=== PATIENT | female | born 1985 | race African-American/Black ===

== ENCOUNTER 2023-07-17 15:47 | Emergency (ER) | payer OTHER, SELFPAY ==
--- NOTE | ~2023-07-17 | US_ITS ---
EXAMINATION: US OBSTETRICAL ULTRASOUND CLINICAL INFORMATION: Vaginal bleeding. COMPARISON: None available. LMP: Unknown. TECHNIQUE: Transabdominal and transvaginal ultrasound was performed. FINDINGS: There is a single intrauterine gestational sac with visible yolk sac, embryo/fetus, and cardiac activity. There is no significant subchorionic hemorrhage or hematoma. HR: 158 beats per minute. CRL (crown rump length): 1.17 cm (7 weeks 3 days +/- 4 days). RAHEEL (estimated date of delivery): 03/01/2024 +/- 4 days. MATERNAL ADNEXA: The right maternal ovary measures 2.3 x 1.5 x 1.4 cm. The left maternal ovary measures 3.1 x 2.0 x 1.7 cm. There is a corpus luteal cyst measuring 2.5 x 1.1 x 1.2 cm. There is no significant maternal adnexal mass. No maternal pelvic ascites. US/US OB pelvic and transvaginal IMPRESSION: 1. Single intrauterine gestation with ultrasound gestational age of 7 weeks 3 days +/- 4 days. 2. Estimated date of delivery is 03/01/2024 +/- 4 days. 3. No maternal adnexal mass or pelvic ascites.
[2023-07-17 16:47] VITALS: BP 107/68; PULSE 78; RESP 16; TEMP 36.7; O2SAT 99; BMI 27.8
--- NOTE | 2023-07-17 16:53 | ED.GENADULT ---
HPI - General Adult General Chief complaint: OB Stated complaint: Abd pain - sent by urgent care Time Seen by Provider: 07/17/23 21:41 Related Data Allergies Allergy/AdvReac Type Severity Reaction Status Date / Time No Known Allergies Allergy Verified 07/17/23 16:54 [facility] Social History Social History Smoked in Last 30 Days: No Use of substances other than those prescribed or required for medical reasons: No Advance Directives: No Advance Directives Information Provided: No Patient : Yes Physical Exam ED Vital Signs: Vital Signs - 24 hr 07/17/23 16:47 07/17/23 23:34 07/18/23 00:42 Temperature 98.1 F 98.7 F 97.4 F Pulse Rate 78 64 80 Respiratory Rate 16 16 14 Blood Pressure 107/68 102/59 L 107/67 Pulse Oximetry 99 98 97 Oxygen Delivery Method Room Air Room Air Room Air BMI result Body Mass Index 27.8 Course Course Course Narrative: RME performed by Cuca Wlalace PA-C. Patient is a 38 year old assigned female at presenting to the emergency department with abdominal pain, vaginal bleeding, and current . Detailed physical exam and review of systems are deferred to the table maker. Labs, imaging, and swabs ordered. Patient placed back in the waiting room pending room availability and results. Patient seen and dispositioned by Dr. Jefferson. Please see his note from the same date. Medical Decision Making Lab Data 07/17/23 17:57 07/17/23 17:57 Labs: Lab Results 07/17/23 07/17/23 Range/Units 17:57 23:34 WBC 8.1 (4.8-10.8) X10*3/uL RBC 4.30 (4.20-5.50) X10*6/uL Hgb 12.5 (12.0-16.0) g/dl Hct 37.4 (37.0-47.0) % MCV 87.0 (80.0-98.0) fL MCH 29.1 (27.0-33.0) pg MCHC 33.4 (31.0-35.0) g/dl RDW 12.8 (11.0-16.0) % Plt Count 285 (160-400) X10*3/uL MPV 9.2 L (9.4-12.3) fL Immature Gran % (Auto) 0.2 (0.0-0.4) % Neut % (Auto) 54.8 (45-73) % Lymph % (Auto) 35.7 (20-40) % [place] % (Auto) 8.6 (2-11) % Eos % (Auto) 0.5 (0-4) % Baso % (Auto) 0.2 (0-2) % Lymph # (Auto) 2.9 (1.2-4.9) X10*3/uL [place] # (Auto) 0.7 (0.1-1.2) X10*3/uL Eos # (Auto) 0.0 (0.0-0.4) X10*3/uL Baso # (Auto) 0.0 (0.0-0.2) X10*3/uL Abs Immat Gran (auto) 0.02 (0.00-0.03) X10*3/uL Absolute Neuts (auto) 4.4 (2.0-8.3) x10*3/uL Absolute Nucleated RBC 0.000 (0.0-0.012) X10*3/uL Nucleated RBC % (auto) 0.0 (0.0-0.2) /100WBC Sodium 138 (135-145) mmol/L Potassium 4.0 (3.3-5.1) mmol/L Chloride 105 (96-108) mmol/L Carbon Dioxide 23 (22-29) mmol/L Anion Gap 14 (12-20) BUN 6 L (9-16) mg/dL Creatinine 0.75 (0.5-1.4) mg/dL Estim Creat Clear Calc 94.3 Estimated GFR > 60 Random Glucose 112 (60-115) mg/dL Calcium 9.8 (8.4-10.2) mg/dL Magnesium 2.2 (1.6-2.6) mg/dL Total Bilirubin 0.4 (0.0-1.0) mg/dL AST 14 (5-31) U/L ALT 11 (0-31) U/L Alkaline Phosphatase 29 L (39-117) U/L Total Protein 7.3 (6.5-8.0) g/dL Albumin 4.3 (3.5-5.0) g/dL Beta HCG, Quant 113733 mIU/mL Blood Type A Positive Antibody Screen NEGATIVE Discharge Plan Discharge Clinical Impression: , threatened Patient Disposition: Home, Self-Care Instructions: Threatened Miscarriage (ED) Referrals: Tariq Johnson MD [Physician] - 07/20/23 Interventions: ED Discharge Assessment Last Done: 07/18/23 00:44 Discharge Date/Time: 07/18/23 00:44 Print Language: Anguillan
[2023-07-17 18:01] LABS: MANUAL DIFF FLAG NO
[2023-07-17 18:10] LABS: Basophils Percent Auto 0.2 % (0-2); Eosinophils Percent Auto 0.5 % (0-4); Hematocrit 37.4 % (37.0-47.0); Hemoglobin 12.5 g/dl (12.0-16.0); Imm Gran Abs Auto 0.02 X10*3/uL (0.00-0.03); Imm Gran Pct Auto 0.2 % (0.0-0.4); Lymphocytes Absolute Auto 2.9 X10*3/uL (1.2-4.9); Lymphocytes Percent Auto 35.7 % (20-40); Mean Corpuscular HGB Conc 33.4 g/dl (31.0-35.0); Mean Corpuscular Hemoglobin 29.1 pg (27.0-33.0); Mean Platelet Volume 9.2 fL (9.4-12.3); Monocytes Absolute Auto 0.7 X10*3/uL (0.1-1.2); Monocytes Percent Auto 8.6 % (2-11); Neutrophils Absolute Auto 4.4 x10*3/uL (2.0-8.3); Neutrophils Percent Auto 54.8 % (45-73); Platelet Count 285 X10*3/uL (160-400); Red Cell Distribution Width 12.8 % (11.0-16.0); White Blood Count 8.1 X10*3/uL (4.8-10.8)
[2023-07-17 18:26] LABS: Alanine Aminotransferase 11 U/L (0-31); Albumin Level 4.3 g/dL (3.5-5.0); Alkaline Phosphatase 29 U/L (39-117); Anion Gap 14 (12-20); Aspartate Amino Transferase 14 U/L (5-31); Bilirubin Total 0.4 mg/dL (0.0-1.0); Blood Urea Nitrogen 6 mg/dL (9-16); Calcium 9.8 mg/dL (8.4-10.2); Carbon Dioxide 23 mmol/L (22-29); Chloride 105 mmol/L (96-108); Creatinine Clr Calc Pharmacy 94.3; Estimated Glomerular Filt Rate > 60; Glucose Random 112 mg/dL (60-115); Magnesium 2.2 mg/dL (1.6-2.6); Sodium 138 mmol/L (135-145); Total Protein 7.3 g/dL (6.5-8.0)
[2023-07-17 23:34] VITALS: BP 102/59; PULSE 64; RESP 16; TEMP 37.1; O2SAT 98
--- NOTE | 2023-07-18 00:15 | ED_ITS ---
HPI - Female Genitourinary General Chief complaint: OB Stated complaint: Abd pain - sent by urgent care Time Seen by Provider: 07/17/23 21:41 History of Present Illness HPI Narrative: Patient is a 38-year-old female presents today with having abdominal pain. The pain is in the lower abdomen. It is associated with small amount of bleeding. Her last menstrual period was the end of May. There is no fever no chills. No pain on urination. Patient from home. Sent in for further evaluation by urgent care. This is her 2nd . She has a 5-year-old child at home. Related Data Allergies Allergy/AdvReac Type Severity Reaction Status Date / Time No Known Allergies Allergy Verified 07/17/23 16:54 Review of Systems 2 Review of Systems: Yes all other systems are reviewed and are negative PMFSH Past Medical History Attestation statement: The following information was validated with the patient. Onset Date is defined in the Problem List Problems that require an onset date and time if occurred within 24 hrs of arrival to the ED Aortic Dissection and Rupture; Neurologic impairment; Cardiopulmonary Arrest; Endotracheal Intubation; Insertion or Replacement of Mechanical Circulatory Assist Device Social History Social History Advance Directives: No Advance Directives Information Provided: No Physical Exam 2 Vital Signs: Vital Signs: Last Vital Signs Temp 98.7 F 07/17/23 23:34 Pulse 64 07/17/23 23:34 Resp 16 07/17/23 23:34 BP 102/59 L 07/17/23 23:34 Pulse Ox 98 07/17/23 23:34 O2 Del Method Room Air 07/17/23 23:34 BMI result Body Mass Index 27.8 Appearance: Alert. Oriented X3. No acute distress. Eyes: Pupils equal, round and reactive to light. ENT: Pharynx normal. Neck: Normal inspection. Neck supple. No lymph nodes noted. No crepitus CVS: Normal heart rate and rhythm. Pulses normal. Normal S1 and S2 Respiratory: No respiratory distress. Breath sounds normal. No Wheezing. No rales Abdomen: Soft and nontender. No rigidity. No distention. good BS x4 Skin: Skin warm and dry. Normal skin color. Normal skin turgor. Extremities: No lower extremity edema. Neurovascular intact to all extremities. No Lacerations. No Rash Neuro: Oriented X 3. No motor deficit. No sensory deficit. Moving all extermities. No slurred speech Medical Decision Making Medical Decision Making [facility] Narrative: Patient 38 years old presents today with having scant amount of vaginal bleeding. Question abdominal pain. Patient is . Approximately 9 weeks. Quant is approximately 100,000. Patient's ultrasound was done and shows an intrauterine . Currently awaiting type and screen to make sure there is no ABO incompatibility. Explained to the patient the need to follow miss A/B precaution. Follow-up with OBGYN on outpatient basis. Explained the patient there is no birthing service at [facility]. Patient's blood type came back is A positive. Will discharge patient home phos follow-up on an outpatient basis. Differential Diagnosis Differential Diagnoses: The differential diagnosis associated with the presentation includes Ectopic , appendicitis, UTI, menstruation, kidney stone Admission/Observation Consideration of admission/observation: Escalation of care including admission/observation considered Well-appearing no need to admit patient Lab Data [facility] Lab Attestation statement: I reviewed the patient's lab results. 07/17/23 17:57 07/17/23 17:57 Labs: Lab Results 07/17/23 07/17/23 Range/Units 17:57 23:34 WBC 8.1 (4.8-10.8) X10*3/uL RBC 4.30 (4.20-5.50) X10*6/uL Hgb 12.5 (12.0-16.0) g/dl Hct 37.4 (37.0-47.0) % MCV 87.0 (80.0-98.0) fL MCH 29.1 (27.0-33.0) pg MCHC 33.4 (31.0-35.0) g/dl RDW 12.8 (11.0-16.0) % Plt Count 285 (160-400) X10*3/uL MPV 9.2 L (9.4-12.3) fL Immature Gran % (Auto) 0.2 (0.0-0.4) % Neut % (Auto) 54.8 (45-73) % Lymph % (Auto) 35.7 (20-40) % [place] % (Auto) 8.6 (2-11) % Eos % (Auto) 0.5 (0-4) % Baso % (Auto) 0.2 (0-2) % Lymph # (Auto) 2.9 (1.2-4.9) X10*3/uL [place] # (Auto) 0.7 (0.1-1.2) X10*3/uL Eos # (Auto) 0.0 (0.0-0.4) X10*3/uL Baso # (Auto) 0.0 (0.0-0.2) X10*3/uL Abs Immat Gran (auto) 0.02 (0.00-0.03) X10*3/uL Absolute Neuts (auto) 4.4 (2.0-8.3) x10*3/uL Absolute Nucleated RBC 0.000 (0.0-0.012) X10*3/uL Nucleated RBC % (auto) 0.0 (0.0-0.2) /100WBC Sodium 138 (135-145) mmol/L Potassium 4.0 (3.3-5.1) mmol/L Chloride 105 (96-108) mmol/L Carbon Dioxide 23 (22-29) mmol/L Anion Gap 14 (12-20) BUN 6 L (9-16) mg/dL Creatinine 0.75 (0.5-1.4) mg/dL Estim Creat Clear Calc 94.3 Estimated GFR > 60 Random Glucose 112 (60-115) mg/dL Calcium 9.8 (8.4-10.2) mg/dL Magnesium 2.2 (1.6-2.6) mg/dL Total Bilirubin 0.4 (0.0-1.0) mg/dL AST 14 (5-31) U/L ALT 11 (0-31) U/L Alkaline Phosphatase 29 L (39-117) U/L Total Protein 7.3 (6.5-8.0) g/dL Albumin 4.3 (3.5-5.0) g/dL Beta HCG, Quant 123472 mIU/mL Blood Type A Positive Discharge Plan Discharge Clinical Impression: , threatened Patient Disposition: Home, Self-Care Instructions: Threatened Miscarriage (ED) Referrals: Tariq Johnson MD [Physician] - 07/20/23 Print Language: Faroese
[2023-07-18 00:42] VITALS: BP 107/67; PULSE 80; RESP 14; TEMP 36.3; O2SAT 97
--- NOTE | 2023-07-18 00:43 | PC.NURSE ---
pt ambulatory at discharge. vss. pt calm and cooperative. medical records clerk utilized at discharge. pt provided with discharge packet. pt verbalized understanding of discharge plan
== END 2023-07-18 00:44 | disposition home or self-care (01) ==
PROVIDERS: Physician Assistant Medical; Emergency Provider Emergency Medicine Emergency Medical Services
DX: O20.0 Threatened abortion (principal); Z3A.01 Less than 8 weeks gestation of pregnancy; Z79.899 Other long term (current) drug therapy
CPT/HCPCS: 36415; 76801; 76817; 80053; 83735; 84702; 85025; 86850; 86900; 86901; 99284

== ENCOUNTER 2023-08-04 08:58 | Outpatient (AMB) | payer OTHER, SELFPAY ==
[2023-08-04 09:01] VITALS: BP 118/74; PULSE 70; RESP 13; TEMP 36.3; O2SAT 99; BMI 27.5
--- NOTE | 2023-08-04 09:01 | MHC.PC.OV ---
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 Patient has been vomitting alot due to and haxnt been able to keep anything down. Category Consultant Required: Yes Category Consultant Name: Quique ([id number]) Accompanied by: Daughter Allergies No Known Allergies Allergy (Verified 08/04/23 09:25) Medication List - Last Reconciled 08/04/23 by Elmer Jolly CNP No Known Home Meds Tobacco use date assessed: 08/04/23 Dental Screening Dental Screen Date: 08/04/23 Did you have a dental visit in the last 12 months?: No Did you have a dental problem in the last 6 months where you did not have access to dental care?: No Was dental information given to patient?: Yes HPI HPI Comments History of Present Illness Details New patient Creole Speaking Relocated from [facility] to [facility] in 10/18/2022 Prior PCP:?No former PCP in the . No PCP in [facility] Last blood work: 07/17/2023 Approximately 9 weeks . She has an appointment with [facility] on 08/18/2023 Acute issue(s): Nausea and non bloody vomiting -Not taking any medication for her symptoms PMHx: Denies SurgHx:Exlap and Biopsy 2009 FHx: Mom: Denies SocHx: Nonsmoker. Non drinker. No recreational drugs She was recently evaluated at [facility] for abdominal pain, vaginal bleeding, and . 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 1. Little interest or pleasure in doing things: not at all 2. Feeling down, depressed, or hopeless: not at all 3. Trouble falling or staying asleep, or sleeping too much: not at all 4. Feeling tired or having little energy: not at all 5. Poor appetite or overeating: not at all 6. Feeling bad about yourself - or that you are a failure or have let yourself or your family down: not at all 7. Trouble concentrating on things, such as reading the newspaper or watching television: not at all 8. Moving or speaking so slowly that other people could have noticed. Or the opposite - being so fidgety or restless that you have been moving around a lot more than usual: not at all 9. Thoughts that you would be better off or of hurting yourself in some way: not at all Total score: 0 Depression Screening Interpretation: Negative Depression Screening Done: Yes 51430 - PHQ-9 Billing: Yes Source: Developed by Drs. Isidro Smith, Maureen Rodriguez, Baldev Hutchinson and colleagues, with an educational gabriel from [employer]. Thrive Questionnaire Date Thrive assessed: 08/04/23 I am a: Patient What is your living situation today?: I have a place to live, but I am worried about losing it in the future Within the past 12 months, did the food you bought not last and you didn't have the money to get more?: Never true Within the past 12 months, did you worry whether your food would run out before you got money to buy more?: Never true Do you have trouble paying for medicines?: No Do you have trouble getting transportation to medical appointments?: No Do you have trouble paying your heating and electricity bill?: No Do you have trouble taking care of your child, family member or friend?: No Do you have trouble with day-to-day activities such as bathing, preparing meals, shopping, managing finances, etc.?: No Are you currently unemployed and looking for a job?: Yes Are you interested in more education?: No Please select the resources that you would like help with: Job search/training THRIVE Score: 1 AUDIT C Alcohol Use Questionnaire (AUDIT-C) 1. How often do you have a drink containing alcohol?: Never 3. How often do you have six or more drinks on one occasion?: Never Total Score: 0 SHANTELL-7 AMB Questionnaire SHANTELL-7 Date SHANTELL - 7 assessed: 08/04/23 Feeling nervous, anxious, or on edge: 0 = Not at all Not being able to stop or control worryin = Not at all Worrying too much about different things: 0 = Not at all Trouble relaxin = Not at all Being so restless that it is hard to sit still: 0 = Not at all Becoming easily annoyed or irritable: 0 = Not at all Feeling afraid as if something awful might happen: 0 = Not at all Total SHANTELL-7 score (0-4 normal; 5-9 mild; 10-14 moderate; 15-21 severe): 0 Source: Developed by Drs. Isidro Smith, Maureen Rodriguez, Baldev Hutchinson and colleagues, with an educational gabriel from [employer]. SHANTELL-7 Assessment Billing SHANTELL-7 Assessment Tool: SHANTELL-7 Assessment 70607 Review of Systems Const Details: Const Denies chills, Denies fatigue, Denies fever(s), Denies headache(s) and Denies weakness ENT Denies dizziness and Denies headache(s) Card Denies chest pain, Denies lightheadedness, Denies dyspnea and Denies other (Palpitations) Resp Denies cough, Denies dyspnea, Denies wheezing and Denies other ( shortness of breath) GI Reports nausea and vomiting, Denies abdominal pain, Denies melena, Denies hematochezia, Denies change in bowel habits, Denies dyspepsia Denies hematuria and Denies dysuria Musc Denies abnormal gait, Denies myalgias, Denies arthralgias, Denies numbness and Denies tingling Skin/Breast Denies rash, Denies unusual bruising and Denies wounds Neuro Denies abnormal gait, Denies dizziness, Denies headache(s), Denies memory loss, Denies numbness, Denies Sensory deficit (Neuro), Denies tingling and Denies weakness Psych Denies anxiety, Denies depression, Denies memory loss Endo Denies cold intolerance, Denies fatigue, Denies heat intolerance, Denies polydipsia and Denies polyuria Aller/Immun Denies wheezing Physical exam (Primary Care) Vital Signs: Last Vital Signs Temp 97.3 F 08/04/23 09:01 Pulse 70 08/04/23 09:01 Resp 13 08/04/23 09:01 BP 118/74 08/04/23 09:01 Pulse Ox 99 08/04/23 09:01 Oxygen Delivery Method Room Air 08/04/23 09:01 BMI result Body Mass Index 27.5 Tobacco/Smoking Status: Tobacco use Status Tobacco use date assessed 08/04/23 08/04/23 09:26 Patient Tobacco Use Status Never used Tobacco 08/04/23 09:26 e-Cigarette/Vaping Use Never Used 08/04/23 09:26 PHQ-9: PHQ-9 Score PHQ-9: Total score 0 08/04/23 09:27 Depression Screening Interpretation: Negative Thrive Assessment: Date of Thrive Assessment Date Thrive assessed 08/04/23 08/04/23 09:26 Const Other: General: no acute distress and well developed Nutritional Appearance: well nourished Orientation/consciousness: patient oriented x3 HENMT Head: Yes normocephalic and Yes atraumatic Eyes General: appearance normal, both eyes and all related structures Pupils: Equal, round and reactive pupils present EOM: EOMs intact bilaterally Resp Effort & Inspection: normal respiratory effort Auscultation: clear to auscultation bilaterally Cardio Rate: regular rate Rhythm: regular rhythm Heart sounds: S1 normal heart sound present, S2 normal heart sound present, no gallops, no murmurs and no rubs GI Palpation (GI): No Abdominal aortic bruit present, Soft to palpation, nontender, No hepatosplenomegaly present and No Rebound tenderness present Auscultation: normal bowel sounds General: Yes no CVA tenderness Back/Spine/Pelvis Back: no CVA tenderness Cervical Spine: cervical ROM normal and No Cervical spine tenderness Thoracic/Lumbar Spine: thoraco-lumbar ROM normal, No pain with thoraco-lumbar ROM, No thoracic spinal tenderness and No lumbar spinal tenderness Extrem General: Yes normal to inspection, No edema and No calf tenderness Skin General: warm and dry. Normal skin color. Normal skin turgor Lesions: no lesions Rashes: no rashes Trauma: no lacerations or abrasions Wounds: no wounds Nails: normal Neuro General: patient oriented x3, gait normal and no focal neuro deficit Cranial nerves: Yes Equal, round and reactive pupils present Cognition (Neuro): normal cognition Gait exam (Neuro): Normal gait present Sensory Exam: No Sensory deficit (Neuro) Psych Appearance: grossly normal Affect: normal affect Attitude: cooperative Thought process: Normal thought process present Assessment and Plan Assessment & Plan (1) : Code(s): Z34.90 - Encounter for supervision of normal , unspecified, unspecified trimester Plan: Approximately 9 weeks Reports nausea and nonbloody vomiting Bonjesta as prescribed Has a follow-up appointment with [facility] first mate Follow-up as planned Adequate hydration encouraged Return or go to the ED with worsening or new symptoms Verbalized understanding and agreed with treatment plan (2) Nausea and vomiting during : Code(s): O21.9 - Vomiting of , unspecified Plan: Plan as above (3) Laboratory tests ordered as part of a complete physical exam (CPE): Code(s): Z00.00 - Encounter for general adult medical examination without abnormal findings Plan: Fasting labs ordered as part of a complete physical exam. Advised to fast for at least 10 hours before getting labs drawn. May drink water Verbalized understanding and agreed with treatment plan. Orders: Orders Lipid Panel Today Z00.00 - Encounter for general adult medical examination without abnormal findings UA CC w/rflx Micro + Cult Today Z00.00 - Encounter for general adult medical examination without abnormal findings, Z34.90 - Encounter for supervision of normal , unspecified, unspecified trimester TSH reflex Free T4 Today Z00.00 - Encounter for general adult medical examination without abnormal findings Medications: New doxylamine-pyridoxine (vit B6) 20-20 mg (Bonjesta) 1 tab PO BEDTIME 15 tabs 0RF 15 days Coding Level of Care Code New Pt Level 4 (24069) Diagnoses Z34.90 Nausea and vomiting during O21.9 Laboratory tests ordered as part of a complete physical exam (CPE) Z00.00 Additional Codes SHANTELL-7 Assessment Billing - SHANTELL-7 Assessment Tool: SHANTELL-7 Assessment 09916 ([id number])
== END 2023-08-04 10:03 | disposition home or self-care (01) ==
PROVIDERS: PCP Nurse Practitioner Family; Visit Provider Nurse Practitioner Family
DX: Z34.90 Encounter for supervision of normal pregnancy, unspecified, unspecified trimester (principal); O21.9 Vomiting of pregnancy, unspecified; Z00.00 Encounter for general adult medical examination without abnormal findings
CPT/HCPCS: 99204

== ENCOUNTER 2023-08-07 10:10 | Outpatient (REF) | payer OTHER, SELFPAY ==
[2023-08-07 15:06] LABS: Appearance Urine Clear; Color Urine Yellow; Glucose Urine UA Negative (Negative); Leukocyte Esterase Urine Negative (Negative); Nitrite Urine Negative (Negative); Urine Blood Negative (Negative); Urine Ketones Negative (Negative); Urine Protein Negative (Neg-Trace)
[2023-08-07 15:50] LABS: Cholesterol 203 mg/dL (<200); HDL Cholesterol 81 mg/dL (>40); LDL Cholesterol Calculated 105 mg/dL (<100); Triglycerides 87 mg/dL (<150)
[2023-08-07 16:00] LABS: TSH reflex Free T4 1.24 uIU/mL (0.32-4.0)
== END 2023-08-07 10:11 | disposition home or self-care (01) ==
LOC: HO.WFDLDS 10:10
PROVIDERS: Visit Provider Nurse Practitioner Family
DX: Z00.00 Encounter for general adult medical examination without abnormal findings (principal); O09.529 Supervision of elderly multigravida, unspecified trimester
CPT/HCPCS: 36415; 80061; 81003; 84443

== ENCOUNTER 2023-09-11 07:57 | Outpatient (AMB) | payer OTHER, SELFPAY ==
--- NOTE | 2023-09-11 08:09 | MHC.PC.OV ---
Vital Signs 09/11/23 08:11 Height 5 ft 2 in Weight 152 lb 6 oz BMI 27.9 BP 108/64 Blood Pressure Location Rt brachial Position Sitting Respiration 13 Pulse 79 Pulse Source Pulse Oximeter Temp 97 F Temp Source Temporal Artery Scan Pulse Oximetry (%) 99 Oxygen Delivery Method Room Air Intake Visit Reasons: cpe Intake Note: . Commissioning Agent Required: Yes Commissioning Agent Name: Faith ([id number]) Accompanied by: Self / Same As Patient Allergies No Known Allergies Allergy (Verified 09/11/23 08:22) Medication List - Last Reconciled 09/11/23 by Elmer Jolly CNP doxylamine-pyridoxine (vit B6) 20-20 mg (Bonjesta) 1 tab PO BEDTIME 15 days Tobacco use date assessed: 08/04/23 Dental Screening Dental Screen Date: 09/11/23 Did you have a dental visit in the last 12 months?: No Did you have a dental problem in the last 6 months where you did not have access to dental care?: No Was dental information given to patient?: Yes HPI HPI Comments History of Present Illness Details 38-year-old female presents for a complete physical exam She has no significant past medical history She is approximately 14 weeks . She is followed by [facility] therapeutic radiologist She reports intermittent suprapubic discomfort for the past 2 weeks She notes that her last pap smear test 09/07/2023: result pending She states that she is sexually active active, in a monogamous relationship, and has no concerns for STD She has a follow-up appointment with her therapeutic radiologist later this month [facility] Medical History delivery delivered High blood pressure Surgical History No pertinent past surgical history Social History Housing: Other (Hotel) Patient Tobacco Use Status: Never used Tobacco e-Cigarette/Vaping Use: Never Used service: No Current occupational status: employed 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 1. Little interest or pleasure in doing things: not at all 2. Feeling down, depressed, or hopeless: not at all 3. Trouble falling or staying asleep, or sleeping too much: not at all 4. Feeling tired or having little energy: not at all 5. Poor appetite or overeating: not at all 6. Feeling bad about yourself - or that you are a failure or have let yourself or your family down: not at all 7. Trouble concentrating on things, such as reading the newspaper or watching television: not at all 8. Moving or speaking so slowly that other people could have noticed. Or the opposite - being so fidgety or restless that you have been moving around a lot more than usual: not at all 9. Thoughts that you would be better off or of hurting yourself in some way: not at all Total score: 0 Depression Screening Interpretation: Negative Depression Screening Done: Yes 71900 - PHQ-9 Billing: Yes Source: Developed by Drs. Isidro Smith, Maureen Rodriguez, Baldev Hutchinson and colleagues, with an educational gabriel from [employer] Thrive Questionnaire Date Thrive assessed: 08/04/23 AUDIT C Alcohol Use Questionnaire (AUDIT-C) 1. How often do you have a drink containing alcohol?: Never 3. How often do you have six or more drinks on one occasion?: Never Total Score: 0 SHANTELL-7 AMB Questionnaire SHANTELL-7 Date SHANTELL - 7 assessed: 08/04/23 Feeling nervous, anxious, or on edge: 0 = Not at all Not being able to stop or control worryin = Not at all Worrying too much about different things: 0 = Not at all Trouble relaxin = Not at all Being so restless that it is hard to sit still: 0 = Not at all Becoming easily annoyed or irritable: 0 = Not at all Feeling afraid as if something awful might happen: 0 = Not at all Total SHANTELL-7 score (0-4 normal; 5-9 mild; 10-14 moderate; 15-21 severe): 0 Source: Developed by Drs. Isidro Smith, Maureen Rodriguez, Baldev Hutchinson and colleagues, with an educational gabriel from [employer] Review of Systems Const Details: Denies chills, Denies fatigue, Denies fever(s), Denies headache(s) and Denies weakness HEENT Denies change in vision, Denies dizziness, Denies headache(s), Denies hearing loss, Denies nasal congestion, Denies sinus pain, Denies sinus pressure and Denies sore throat Card Denies chest pain, Denies lightheadedness, Denies dyspnea and Denies other (palpitations) Resp Denies cough, Denies dyspnea and Denies wheezing GI Denies abdominal pain, Denies melena, Denies hematochezia, Denies change in bowel habits, Denies dyspepsia and Denies nausea Denies hematuria and Denies dysuria Musc Reports suprapubic discomfort, Denies myalgias, Denies arthralgias, Denies numbness and Denies tingling Skin/Breast Denies rash, Denies unusual bruising and Denies wounds Neuro Denies abnormal gait, Denies dizziness, Denies headache(s), Denies memory loss, Denies numbness, Denies Sensory deficit (Neuro), Denies tingling and Denies weakness Psych Denies anxiety, Denies depression and Denies memory loss Endo Denies cold intolerance, Denies fatigue, Denies heat intolerance, Denies polydipsia and Denies polyuria Danie/Lymph Denies easy bleeding and Denies easy bruising Aller/Immun Denies wheezing Physical exam (Primary Care) Vital Signs: Last Vital Signs Temp 97 F 09/11/23 08:11 Pulse 79 09/11/23 08:11 Resp 13 09/11/23 08:11 BP 108/64 09/11/23 08:11 Pulse Ox 99 09/11/23 08:11 Oxygen Delivery Method Room Air 09/11/23 08:11 BMI result Body Mass Index 27.9 Tobacco/Smoking Status: Tobacco use Status Tobacco use date assessed 08/04/23 09/11/23 08:11 Patient Tobacco Use Status Never used Tobacco 09/11/23 08:11 e-Cigarette/Vaping Use Never Used 09/11/23 08:11 PHQ-9: PHQ-9 Score PHQ-9: Total score 0 09/11/23 08:18 Depression Screening Interpretation: Negative Thrive Assessment: Date of Thrive Assessment Date Thrive assessed 08/04/23 09/11/23 08:11 Const Other: General: no acute distress, well developed, alert and awake Nutritional Appearance: well nourished Orientation/consciousness: patient oriented x3 [facility] Head: Yes normocephalic and Yes atraumatic Ears: hearing grossly normal bilaterally and TM's normal bilaterally General nose exam: Normal external nose present and Normal nares present Mouth: Normal oral and palatal mucosa present and moist mucous membranes Teeth and gingiva: dentition normal Throat: Yes oropharynx normal Eyes Pupils: Equal, round and reactive pupils present and Pupil accommodation reflex normal EOM: EOMs intact bilaterally Neck Neck: Yes normal visual inspection, Yes no lymphadenopathy and Yes trachea midline Thyroid: Thyroid normal Carotids: no bruits Lymphatic: no lymphadenopathy noted Chest Chest palpation & inspection: normal inspection of the chest Resp Effort & Inspection: normal respiratory effort Auscultation: clear to auscultation bilaterally Cardio Rate: regular rate Rhythm: regular rhythm Heart sounds: S1 normal heart sound present, S2 normal heart sound present, no gallops, no murmurs and no rubs Bruits: no abdominal aortic bruits and no carotid bruits GI Palpation (GI): No Abdominal aortic bruit present, Soft to palpation, tender suprapubic region, No hepatosplenomegaly present and No Rebound tenderness present Auscultation: normal bowel sounds General: Yes no CVA tenderness Back/Spine/Pelvis Back: no CVA tenderness Cervical Spine: cervical ROM normal and No Cervical spine tenderness Thoracic/Lumbar Spine: thoraco-lumbar ROM normal, No pain with thoraco-lumbar ROM, No thoracic spinal tenderness and No lumbar spinal tenderness Skin General: warm and dry. Normal skin color. Normal skin turgor Lesions: no lesions Rashes: no rashes Trauma: no lacerations or abrasions Wounds: no wounds Nails: normal Neuro General: patient oriented x3, gait normal and CN's II-XI intact bilaterally Cranial nerves: Yes Equal, round and reactive pupils present Cognition (Neuro): normal cognition Gait exam (Neuro): Normal gait present Motor exam (neuro): 5/5 motor strength present throughout Sensory Exam: No Sensory deficit (Neuro) Deep tendon reflexes (DTR's): Right patellar reflex intensity grade: 2+ and Left patellar reflex intensity grade: 2+ Extrem General: Yes normal to inspection, No edema and No calf tenderness Psych Appearance: grossly normal Affect: normal affect Attitude: cooperative Thought process: Normal thought process present Assessment and Plan Assessment & Plan (1) Normal physical examination, routine: Code(s): Z00.00 - Encounter for general adult medical examination without abnormal findings Plan: No significant physical restrictions or limitations noted Continue current treatment regimen Follow up with ACCOUNTING SYSTEM EXPERT as planned Return with symptoms or concern Verbalized understanding and agreed with the plan (2) Suprapubic discomfort: Code(s): R10.2 - Pelvic and perineal pain Plan: Suprapubic discomfort x2 weeks Suprapubic tenderness with palpation Likely due to process Follow-up with OBGYN with worsening or new symptoms Verbalized understanding and agreed with the plan (3) Hypercholesterolemia: Code(s): E78.00 - Pure hypercholesterolemia, unspecified Plan: Recent labs reviewed with the patient; unremarkable findings except for slightly elevated total cholesterol, 203 Advised to limit foods high in saturated fat and avoid foods high in trans fat Routine exercise encouraged Will recheck lipid panel in a year Verbalized understanding and agreed with the treatment plan Coding Level of Care Code Est Pt Prev Care 18-39y(40281) Diagnoses Normal physical examination, routine Z00.00 Suprapubic discomfort R10.2 Hypercholesterolemia E78.00
[2023-09-11 08:11] VITALS: BP 108/64; PULSE 79; RESP 13; TEMP 36.1; O2SAT 99; BMI 27.9
== END 2023-09-11 08:46 | disposition home or self-care (01) ==
PROVIDERS: Visit Provider Nurse Practitioner Family
DX: Z00.00 Encounter for general adult medical examination without abnormal findings (principal); R10.2 Pelvic and perineal pain; E78.00 Pure hypercholesterolemia, unspecified
CPT/HCPCS: 99395

== ENCOUNTER 2025-02-25 12:48 | Outpatient (AMB) | payer OTHER, SELFPAY ==
--- NOTE | 2025-02-25 12:50 | MHC.PC.OV ---
Vital Signs 02/25/25 13:03 Weight 165 lb 6 oz BP 117/77 Blood Pressure Location Rt brachial Position Sitting Respiration 16 Pulse 71 Pulse Source Pulse Oximeter Temp 97.7 F Temp Source Oral Pulse Oximetry (%) 99 Oxygen Delivery Method Room Air Intake Visit Reasons: stomach ache Intake Note: patient here c/o having pain in stomach for 2-3 months. she drinks warm water and sugar and it helps the pain. Bulldozer Engineer Required: Yes Bulldozer Engineer Language: [place]anna Bulldozer Engineer Name: sarthak ayala [id number] Information Interpreted: non-clinical & clinical Is last menstrual period known: No Post menopausal: No Patient : No Allergies No Known Allergies Allergy (Verified 02/25/25 13:10) Medication List - Last Reconciled 02/25/25 by Elmer Jolly CNP No Known Home Meds Tobacco use date assessed: 02/25/25 Dental Screening Dental Screen Date: 02/25/25 Did you have a dental visit in the last 12 months?: No Did you have a dental problem in the last 6 months where you did not have access to dental care?: No Was dental information given to patient?: Yes HPI HPI Comments History of Present Illness Details 39-year-old Creole speaking female presents with complaints of intermittent epigastric pain for the past 2 months. She describes the pain pain as sharp with associated SOB. She notes that the pain has no relationship with food. She is unsure about the duration of the pain. She admits to consuming significant of fried foods. Denies eating greasy food. She denies changes in bowel habits. She denies nausea or vomiting. She denies pain at this time. She has not taking any medication for her symptoms. Warm water with sugar provides brief relief. She has not experienced her menstural cycle for the past 1 year. She takes injection every 3 months for control at [facility] family planning. She is not followed by wheel blocker. Interpretation by a professional Creole speaking heat set operator virtually. 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 Isidro Smith, Maureen Rodriguez, Baldev Hutchinson and colleagues, with an educational gabriel from [employer]. Review of Systems Const Details: Const Denies chills, Denies fatigue, Denies fever(s), Denies headache(s) and Denies weakness ENT Denies dizziness and Denies headache(s) Card Denies chest pain, Denies lightheadedness, Denies dyspnea and Denies other (Palpitations) Resp Denies cough, Denies dyspnea, Denies wheezing and Denies other ( shortness of breath) GI Reports abdominal pain, Denies melena, Denies hematochezia, Denies change in bowel habits, Denies dyspepsia and Denies nausea Denies hematuria and Denies dysuria Musc Denies abnormal gait, Denies myalgias, Denies arthralgias, Denies numbness and Denies tingling Skin/Breast Denies rash, Denies unusual bruising and Denies wounds Neuro Denies abnormal gait, Denies dizziness, Denies headache(s), Denies memory loss, Denies numbness, Denies Sensory deficit (Neuro), Denies tingling and Denies weakness Psych Denies anxiety, Denies depression, Denies memory loss Endo Denies cold intolerance, Denies fatigue, Denies heat intolerance, Denies polydipsia and Denies polyuria Aller/Immun Denies wheezing Physical exam (Primary Care) Vital Signs: Last Vital Signs Temp 97.7 F 02/25/25 13:03 Pulse 71 02/25/25 13:03 Resp 16 02/25/25 13:03 BP 117/77 02/25/25 13:03 Pulse Ox 99 02/25/25 13:03 Oxygen Delivery Method Room Air 02/25/25 13:03 Tobacco/Smoking Status: Tobacco use Status Tobacco use date assessed 02/25/25 02/25/25 13:06 Patient Tobacco Use Status Never used Tobacco 02/25/25 12:50 e-Cigarette/Vaping Use Never Used 02/25/25 12:50 Thrive Assessment: Date of Thrive Assessment Date Thrive assessed 08/04/23 02/25/25 12:50 Const Other: General: no acute distress and well developed Nutritional Appearance: well nourished Orientation/consciousness: patient oriented x3 [facility] Head: Yes normocephalic and Yes atraumatic Eyes General: appearance normal, both eyes and all related structures Pupils: Equal, round and reactive pupils present EOM: EOMs intact bilaterally Resp Effort & Inspection: normal respiratory effort Auscultation: clear to auscultation bilaterally Cardio Rate: regular rate Rhythm: regular rhythm Heart sounds: S1 normal heart sound present, S2 normal heart sound present, no gallops, no murmurs and no rubs GI Palpation (GI): No Abdominal aortic bruit present, Soft to palpation, nontender, No hepatosplenomegaly present and No Rebound tenderness present Auscultation: normal bowel sounds General: Yes no CVA tenderness Back/Spine/Pelvis Back: no CVA tenderness Cervical Spine: cervical ROM normal and No Cervical spine tenderness Thoracic/Lumbar Spine: thoraco-lumbar ROM normal, No pain with thoraco-lumbar ROM, No thoracic spinal tenderness and No lumbar spinal tenderness Extrem General: Yes normal to inspection, No edema and No calf tenderness Skin General: warm and dry. Normal skin color. Normal skin turgor Neuro General: patient oriented x3, gait normal and no focal neuro deficit Cranial nerves: Yes Equal, round and reactive pupils present Cognition (Neuro): normal cognition Gait exam (Neuro): Normal gait present Sensory Exam: No Sensory deficit (Neuro) Psych Appearance: grossly normal Affect: normal affect Attitude: cooperative Thought process: Normal thought process present Coding Level of Care Code Est Pt Level 4 (89060) Diagnoses Abdominal pain R10.9 Laboratory tests ordered as part of a complete physical exam (CPE) Z00.00 Assessment & Plan Assessment & Plan (1) Abdominal pain: Code(s): R10.9 - Unspecified abdominal pain Category: Medical Plan: No current symptoms. Abdomen soft, nontender, nondistended, active bowel sounds x4. Differentials include GERD, gastritis, and peptic ulcer disease. Omeprazole 20 mg daily ordered; advised to take as prescribed. Instructed on the risks, benefits, and potential adverse reactions of the medication. Advised to avoid fatty or greasy foods. Perform lab work before next visit. Urine hCG ordered. Follow-up for an extended physical exam and labs review. Return sooner with symptoms or concerns. Verbalized understanding and agreed with the plan. (2) Laboratory tests ordered as part of a complete physical exam (CPE): Code(s): Z00.00 - Encounter for general adult medical examination without abnormal findings Category: Medical Plan: Fasting labs ordered as part of a complete physical exam. Advised to fast for at least 10 hours before getting labs drawn. May drink water Verbalized understanding and agreed with treatment plan. Orders: Orders Comprehensive [place]. Panel Fast Today Z00.00 - Encounter for general adult medical examination without abnormal findings Lipid Panel Today R10.9 - Unspecified abdominal pain UA CC w/rflx Micro + Cult Today Z00.00 - Encounter for general adult medical examination without abnormal findings Vitamin D 25-OH Total Today Z00.00 - Encounter for general adult medical examination without abnormal findings Complete Blood Count Auto Diff Today Z00.00 - Encounter for general adult medical examination without abnormal findings Microalbumin, Random (w Creat) Today Z00.00 - Encounter for general adult medical examination without abnormal findings TSH reflex Free T4 Today Z00.00 - Encounter for general adult medical examination without abnormal findings AMB HCG Urine Test Today R10.9 - Unspecified abdominal pain Medications: New omeprazole 20 mg PO DAILY 30 caps 0RF 30 days
[2025-02-25 13:03] VITALS: BP 117/77; PULSE 71; RESP 16; TEMP 36.5; O2SAT 99
== END 2025-02-25 13:41 | disposition home or self-care (01) ==
LOC: HO.HMCFM 12:48
PROVIDERS: PCP Nurse Practitioner Family; Visit Provider Nurse Practitioner Family
DX: R10.9 Unspecified abdominal pain (principal); Z00.00 Encounter for general adult medical examination without abnormal findings

== ENCOUNTER → 2025-02-25 12:48 | Outpatient (BNVA) | payer OTHER, SELFPAY | PROVIDERS: PCP Nurse Practitioner Family; Visit Provider Nurse Practitioner Family | DX: Z00.00 Encounter for general adult medical examination without abnormal findings (principal); R10.13 Epigastric pain | CPT/HCPCS: 81025; 99212 ==

== ENCOUNTER 2025-03-06 10:16 | Outpatient (REF) | payer OTHER, SELFPAY ==
[2025-03-06 14:32] LABS: MANUAL DIFF FLAG NO
[2025-03-06 14:36] LABS: Appearance Urine Clear; Glucose Urine UA Negative (Negative); Hematocrit 39.4 % (37.0-47.0); Hemoglobin 13.1 g/dl (12.0-16.0); Imm Gran Abs Auto 0.01 X10*3/uL (0.00-0.03); Imm Gran Pct Auto 0.1 % (0.0-0.4); Lymphocytes Absolute Auto 2.0 X10*3/uL (1.2-4.9); Mean Corpuscular HGB Conc 33.2 g/dl (31.0-35.0); Mean Corpuscular Hemoglobin 28.9 pg (27.0-33.0); Mean Corpuscular Volume 87.0 fL (80.0-98.0); NRBC Abs Auto 0.000 X10*3/uL (0.0-0.012); NRBC Pct Auto 0.0 /100WBC (0.0-0.2); PH 5.5 (5.0-9.0); Platelet Count 298 X10*3/uL (160-400); Red Blood Count 4.53 X10*6/uL (4.20-5.50); Specific Gravity - Urine 1.020 (1.005-1.025); White Blood Count 7.3 X10*3/uL (4.8-10.8)
[2025-03-06 15:02] LABS: Alanine Aminotransferase 25 U/L (0-31); Albumin Level 4.6 g/dL (3.5-5.0); Alkaline Phosphatase 49 U/L (39-117); Anion Gap 11 (12-20); Aspartate Amino Transferase 23 U/L (5-31); Blood Urea Nitrogen 14 mg/dL (9-16); Calcium 9.5 mg/dL (8.4-10.2); Carbon Dioxide 26 mmol/L (22-29); Chloride 104 mmol/L (96-108); Cholesterol 244 mg/dL (<200); Estimated Glomerular Filt Rate > 60; HDL Cholesterol 70 mg/dL (>40); Potassium 3.7 mmol/L (3.3-5.1); Sodium 137 mmol/L (135-145); Total Protein 7.6 g/dL (6.5-8.0); Triglycerides 95 mg/dL (<150)
== END 2025-03-06 10:17 | disposition home or self-care (01) ==
LOC: HO.WFDLDS 10:16
PROVIDERS: Visit Provider Nurse Practitioner Family
DX: Z00.00 Encounter for general adult medical examination without abnormal findings (principal); R10.9 Unspecified abdominal pain
CPT/HCPCS: 36415; 80053; 80061; 81003; 82043; 82306; 82570; 84443; 85025

== ENCOUNTER 2025-05-09 09:10 | Outpatient (AMB) | payer OTHER, SELFPAY ==
--- NOTE | 2025-05-09 09:16 | MHC.PC.OV ---
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 Worker Required: Yes Bindery Worker Language: Finnish Creadria Information Interpreted: non-clinical & clinical Is last menstrual period known: Yes Last menstrual period: 05/02/25 Post menopausal: No Patient : No Allergies No Known Allergies Allergy (Verified 05/09/25 09:45) Medication List - Last Reconciled 05/09/25 by Elmer Jolly CNP omeprazole 20 mg PO DAILY Tobacco use date assessed: 05/09/25 Dental Screening Dental Screen Date: 05/09/25 Did you have a dental visit in the last 12 months?: No Did you have a dental problem in the last 6 months where you did not have access to dental care?: No Was dental information given to patient?: Patient has dentist HPI HPI Comments History of Present Illness Details 40-year-old Creole speaking female presents for a complete physical exam and review of recent lipid panel level. Reports intermittent pain to epigastrium. Unable to describe the pain, states it is not burning. Ongoing for the past 6-7 months, lasting about an hour. Has had symptoms twice this month, last symptoms were last Monday. Nothing aggravates or relives the pain. No associated symptoms. Denies eating fatty or greasy foods. Denies nausea, vomiting, diarrhea, or constipation. She has been taking omeprazole daily as prescribed. Acute issue(s) - None Past Medical History - Hypercholesterolemia, GERD Social History - Nonsmoker. Does not vape. Does not drink alcohol. Denies recreational drug use - Has been making healthy dietary choices. Active but does not exercise. Generally sleep well Health maintenance - She has never had an eye exam. Referred to Ophthalmology for an eye exam - She has never had visited a dentist; encouraged to schedule an appointment with his dentist for routine dental care - Last Tdap was likely when she had a baby 14 months ago - Has not been vaccinated for the flu this season; receives vaccination today - Last pap smear test likely over 14 months ago with [facility] director of music therapy. 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 1. Little interest or pleasure in doing things: not at all 2. Feeling down, depressed, or hopeless: not at all 3. Trouble falling or staying asleep, or sleeping too much: not at all 4. Feeling tired or having little energy: not at all 5. Poor appetite or overeating: not at all 6. Feeling bad about yourself - or that you are a failure or have let yourself or your family down: not at all 7. Trouble concentrating on things, such as reading the newspaper or watching television: not at all 8. Moving or speaking so slowly that other people could have noticed. Or the opposite - being so fidgety or restless that you have been moving around a lot more than usual: not at all 9. Thoughts that you would be better off or of hurting yourself in some way: not at all Total score: 0 Depression Screening Interpretation: Negative Depression Screening Done: Yes 05166 - PHQ-9 Billing: Yes Source: Developed by Drs. Isidro Smith, Maureen Rodriguez, Baldev Hutchinson and colleagues, with an educational gabriel from [employer] Thrive Questionnaire Date Thrive assessed: 05/09/25 I am a: Patient What is your living situation today?: I have a steady place to live Within the past 12 months, did the food you bought not last and you didn't have the money to get more?: Never true Within the past 12 months, did you worry whether your food would run out before you got money to buy more?: Never true Do you have trouble paying for medicines?: No Do you have trouble getting transportation to medical appointments?: No Do you have trouble paying your heating and electricity bill?: No Do you have trouble taking care of your child, family member or friend?: No Do you have trouble with day-to-day activities such as bathing, preparing meals, shopping, managing finances, etc.?: No Are you currently unemployed and looking for a job?: No Are you interested in more education?: No Please select the resources that you would like help with: None Currently or been in a relationship where the following occur: No concerns reported THRIVE Score: 0 AUDIT C Alcohol Use Questionnaire (AUDIT-C) 1. How often do you have a drink containing alcohol?: Never 3. How often do you have six or more drinks on one occasion?: Never Total Score: 0 Score Reviewed/Action Taken: Yes SHANTELL-7 AMB Questionnaire SHANTELL-7 Date SHANTELL - 7 assessed: 05/09/25 Feeling nervous, anxious, or on edge: 0 = Not at all Not being able to stop or control worryin = Not at all Worrying too much about different things: 0 = Not at all Trouble relaxin = Not at all Being so restless that it is hard to sit still: 0 = Not at all Becoming easily annoyed or irritable: 0 = Not at all Feeling afraid as if something awful might happen: 0 = Not at all Total SHANTELL-7 score (0-4 normal; 5-9 mild; 10-14 moderate; 15-21 severe): 0 Source: Developed by Drs. Isidro Smith, Maureen Rodriguez, Baldev Hutchinson and colleagues, with an educational gabriel from [employer] SHANTELL-7 Assessment Billing SHANTELL-7 Assessment Tool: SHANTELL-7 Assessment 90488 Review of Systems Const Details: Denies chills, Denies fatigue, Denies fever(s), Denies headache(s) and Denies weakness HEENT Denies change in vision, Denies dizziness, Denies headache(s), Denies hearing loss, Denies nasal congestion, Denies sinus pain, Denies sinus pressure and Denies sore throat Card Denies chest pain, Denies lightheadedness, Denies dyspnea and Denies other (palpitations) Resp Denies cough, Denies dyspnea and Denies wheezing GI Denies abdominal pain, Denies melena, Denies hematochezia, Denies change in bowel habits, Denies dyspepsia and Denies nausea Denies hematuria and Denies dysuria Musc Denies abnormal gait, Denies myalgias, Denies arthralgias, Denies numbness and Denies tingling Skin/Breast Denies rash, Denies unusual bruising and Denies wounds Neuro Denies abnormal gait, Denies dizziness, Denies headache(s), Denies memory loss, Denies numbness, Denies Sensory deficit (Neuro), Denies tingling and Denies weakness Psych Denies anxiety, Denies depression and Denies memory loss Endo Denies cold intolerance, Denies fatigue, Denies heat intolerance, Denies polydipsia and Denies polyuria Danie/Lymph Denies easy bleeding and Denies easy bruising Aller/Immun Denies wheezing Physical exam (Primary Care) Vital Signs: Last Vital Signs Temp 97.4 F 05/09/25 09:35 Pulse 83 05/09/25 09:35 Resp 16 05/09/25 09:35 BP 110/63 05/09/25 09:35 Pulse Ox 95 05/09/25 09:35 Oxygen Delivery Method Room Air 05/09/25 09:35 BMI result Body Mass Index 29.7 Tobacco/Smoking Status: Tobacco use Status Tobacco use date assessed 05/09/25 05/09/25 09:40 Patient Tobacco Use Status Never used Tobacco 05/09/25 09:16 e-Cigarette/Vaping Use Never Used 05/09/25 09:16 PHQ-9: PHQ-9 Score PHQ-9: Total score 0 05/09/25 09:49 Depression Screening Interpretation: Negative Thrive Assessment: Date of Thrive Assessment Date Thrive assessed 05/09/25 05/09/25 09:40 Currently or been in a relationship where the following occur: No concerns reported Const Other: General: no acute distress, well developed, alert and awake Nutritional Appearance: well nourished Orientation/consciousness: patient oriented x3 HENMT Head: Yes normocephalic and Yes atraumatic Ears: hearing grossly normal bilaterally and TM's normal bilaterally General nose exam: Normal external nose present and Normal nares present Mouth: Normal oral and palatal mucosa present and moist mucous membranes Teeth and gingiva: dentition normal Throat: Yes oropharynx normal Eyes Pupils: Equal, round and reactive pupils present and Pupil accommodation reflex normal EOM: EOMs intact bilaterally Neck Neck: Yes normal visual inspection, Yes no lymphadenopathy and Yes trachea midline Thyroid: Thyroid normal Carotids: no bruits Lymphatic: no lymphadenopathy noted Chest Chest palpation & inspection: normal inspection of the chest Resp Effort & Inspection: normal respiratory effort Auscultation: clear to auscultation bilaterally Cardio Rate: regular rate Rhythm: regular rhythm Heart sounds: S1 normal heart sound present, S2 normal heart sound present, no gallops, no murmurs and no rubs Bruits: no abdominal aortic bruits and no carotid bruits GI Palpation (GI): No Abdominal aortic bruit present, Soft to palpation, nontender, No hepatosplenomegaly present and No Rebound tenderness present Auscultation: normal bowel sounds General: Yes no CVA tenderness Back/Spine/Pelvis Back: no CVA tenderness Cervical Spine: cervical ROM normal and No Cervical spine tenderness Thoracic/Lumbar Spine: thoraco-lumbar ROM normal, No pain with thoraco-lumbar ROM, No thoracic spinal tenderness and No lumbar spinal tenderness Skin General: warm and dry. Normal skin color. Normal skin turgor Lesions: no lesions Rashes: no rashes Trauma: no lacerations or abrasions Wounds: no wounds Nails: normal Neuro General: patient oriented x3, gait normal and CN's II-XI intact bilaterally Cranial nerves: Yes Equal, round and reactive pupils present Cognition (Neuro): normal cognition Gait exam (Neuro): Normal gait present Motor exam (neuro): 5/5 motor strength present throughout Sensory Exam: No Sensory deficit (Neuro) Deep tendon reflexes (DTR's): Right patellar reflex intensity grade: 2+ and Left patellar reflex intensity grade: 2+ Extrem General: Yes normal to inspection, No edema and No calf tenderness Psych Appearance: grossly normal Affect: normal affect Attitude: cooperative Thought process: Normal thought process present Coding Level of Care Code Est Pt Level 4 (58381) Est Pt Prev Care 18-39y(44849) Diagnoses Normal physical examination, routine Z00.00 Hypercholesterolemia E78.00 Epigastric pain R10.13 Eye exam, routine Z01.00 Additional Codes SHANTELL-7 Assessment Billing - SHANTELL-7 Assessment Tool: SHANTELL-7 Assessment 47970 ([id number]) PHQ-9 - 44699 - PHQ-9 Billing: Yes ([id number]) Assessment & Plan Assessment & Plan (1) Normal physical examination, routine: Code(s): Z00.00 - Encounter for general adult medical examination without abnormal findings Category: Medical Plan: No significant functional limitation noted. Continue current treatment regimen. Healthy diet and routine exercise encouraged. Perform lipid panel blood work a few days before next visit and follow-up for ALYSON and hypercholesterolemia in 2 months. Return sooner with symptoms or concerns. Verbalized understanding and agreed with the plan. (2) Hypercholesterolemia: Code(s): E78.00 - Pure hypercholesterolemia, unspecified Category: Medical Plan: Recent total cholesterol and LDL levels in February were 244 and 155 respectively, previous levels were 203 and 105 respectively. Advised to limit foods high in saturated fat and avoid foods high in trans fat. Routine exercise encouraged. Fast for 10-12 hours, may drink water, and perform lipid panel blood work a few days before next visit. Follow-up in 2 months. Verbalized understanding and agreed with the plan. (3) Epigastric pain: Code(s): R10.13 - Epigastric pain Category: Medical Plan: Reports intermittent pain to epigastrium. Unable to describe the pain, states it is not burning. Ongoing for the past 6-7 months, lasting about an hour. Has had symptoms twice this month, last symptoms were last Monday. Nothing aggravates or relives the pain. No associated symptoms. Denies eating fatty or greasy foods. Denies nausea, vomiting, diarrhea, or constipation. She has been taking omeprazole daily as prescribed. Continue current treatment regimen. Advised to avoid fatty or greasy foods. Referred to [facility] [place] [place] gastroenterology. Follow-up with worsening or new symptoms. Verbalized understanding and agreed with the plan. (4) Eye exam, routine: Code(s): Z01.00 - Encounter for examination of eyes and vision without abnormal findings Category: Medical Plan: She has never had an eye exam. Referred to Ophthalmology for an eye exam. Orders: Orders Lipid Panel 2 Months E78.00 - Pure hypercholesterolemia, unspecified Referrals Gastroenterology Referral R10.13 - Epigastric pain Ophthalmology Referral Z01.00 - Encounter for examination of eyes and vision without abnormal findings
[2025-05-09 09:35] VITALS: BP 110/63; PULSE 83; RESP 16; TEMP 36.3; O2SAT 95; BMI 29.7
== END 2025-05-09 10:17 | disposition home or self-care (01) ==
LOC: HO.HMCFM 09:11
PROVIDERS: PCP Nurse Practitioner Family; Visit Provider Nurse Practitioner Family
DX: Z00.00 Encounter for general adult medical examination without abnormal findings (principal); E78.00 Pure hypercholesterolemia, unspecified; R10.13 Epigastric pain

== ENCOUNTER → 2025-05-09 09:10 | Outpatient (BNVA) | payer OTHER, SELFPAY | PROVIDERS: PCP Nurse Practitioner Family; Visit Provider Nurse Practitioner Family | DX: Z00.00 Encounter for general adult medical examination without abnormal findings (principal); E78.00 Pure hypercholesterolemia, unspecified; R10.13 Epigastric pain | CPT/HCPCS: 96127; 99395 ==